=== PATIENT | female | born 1955 | race Caucasian/White ===

== ENCOUNTER → 2020-02-22 15:26 | Outpatient (CLI) | payer MEDICARE, OTHER, SELFPAY ==
--- NOTE | 2020-02-22 | DI.MRI.S_ITS ---
PROCEDURE: MR LUMBAR SPINE WO CON INDICATIONS: Radiculopathy, lumbar region TECHNIQUE: Noncontrast sagittal T1 spin echo and T2 fast echo, sagittal STIR, axial T1 and T2 fast spin echo through the lumbar spine. In cases with scoliosis, additional coronal T2 fast spin echo may be performed. COMPARISON: [facility], RG, XR L-SPINE 2-3V, 12/14/2002, 9:19. [facility], MR, L-SPINE WITHOUT CONTRAST, 08/06/2017, 14:43. FINDINGS: Image quality: Excellent. Alignment and Curvature: There is mild L4-L5 anterolisthesis. Bones: Postsurgical changes compatible with L5-S1 interbody fusion and L5 laminectomy stable compared to prior MRI. Reactive endplate changes noted adjacent to the L1-L2, L2-L3 and L3-L4 discs. No acute vertebral body compression fractures. Spinal Cord: Conus medullaris terminates at the L1-L2 disc level. Visualized cord demonstrates normal signal and size. Paraspinous Soft Tissues: No paravertebral masses. L1-L2: Loss of disc signal and height. Moderate, diffuse disc bulge. Mild bilateral facet hypertrophy. Mild narrowing of the central canal. Moderate right and mild left neural foraminal narrowing. No neural compression. L2-L3: Loss of disc signal and height. Moderate, diffuse disc bulge. Moderate bilateral facet hypertrophy. Moderate narrowing of the central canal. Moderate bilateral neural foraminal narrowing. No neural compression. L3-L4: Loss of disc signal and height. Moderate, diffuse disc bulge. Moderate facet and moderate ligamentum flavum hypertrophy. Severe narrowing of the central canal with mild compression of the nerve roots of the cauda equina. Moderate bilateral neural foraminal narrowing. L4-L5: Loss of disc signal and height. Moderate, diffuse disc bulge. Moderate facet and moderate ligamentum flavum hypertrophy. Severe narrowing of the central canal with compression of the nerve roots of the cauda equina. Mild right and moderate to severe left neural foraminal narrowing with slight compression of the exiting left L4 nerve root. L5-S1: Status post fusion. Moderate bilateral facet hypertrophy. No central stenosis. Mild bilateral neural foraminal narrowing.. No neural compression. IMPRESSION: 1. Stable postsurgical changes. 2. Grade 1 L4-L5 degenerative spondylolisthesis. 3. Multilevel degenerate disease. 4. Multilevel facet arthropathy. 5. Severe L3-L4 and L4-L5 central canal narrowing with mild compression of the nerve roots of the cauda equina. 6. Moderate to severe left L4-L5 neural foraminal narrowing with slight compression of the exiting left L4 nerve root. Dictated by: Mary Ann Duke MD, PhD on 02/22/2020 at 16:49 Approved by: Mary Ann Duke MD, PhD on 02/22/2020 at 16:56
== END ==
PROVIDERS: Family Provider Orthopaedic Surgery; PCP Family Medicine; Referring Provider Acupuncturist; Visit Provider Acupuncturist
DX: M51.16 Intervertebral disc disorders with radiculopathy, lumbar region (principal); M47.26 Other spondylosis with radiculopathy, lumbar region; M47.27 Other spondylosis with radiculopathy, lumbosacral region; M48.061 Spinal stenosis, lumbar region without neurogenic claudication; M43.16 Spondylolisthesis, lumbar region; Z98.1 Arthrodesis status
CPT/HCPCS: 72148

== ENCOUNTER 2021-05-25 15:42 | Emergency (ER) | payer MEDICARE, OTHER, SELFPAY ==
[2021-05-25 15:49] VITALS: BP 139/80; PULSE 78; RESP 18; TEMP 36.7; O2SAT 97; BMI 39.3
--- NOTE | 2021-05-25 15:49 | DI.RAD.S_ITS ---
PROCEDURE: XR SHOULDER LT MIN 2V INDICATIONS: left shoulder pain TECHNIQUE: 3 views of the shoulder were acquired. COMPARISON: [facility], CR, XR SHOULDER 2+ VIEWS LEFT, 05/23/2019, 14:51. [facility] [place], CR, XR SHOULDER MIN 2VW RT, 02/14/2016, 14:38. FINDINGS: Bones: Left shoulder hemiarthroplasty noted in place, unchanged the prior. No evidence of hardware failure or loosening. Normal bone mineralization. No subluxation. Left lung apex. Soft tissues: No suspicious soft tissue calcifications. IMPRESSION: Left shoulder hemiarthroplasty in place Approved by: Ruben Lei M.D. on 05/25/2021 at 16:00
--- NOTE | 2021-05-25 17:10 | ED.TRAUMA ---
HPI - Trauma General Chief Complaint: Extremity Injury, Upper Stated Complaint: LEFT SHOULDER PAIN Time Seen by Provider: 05/25/21 17:05 Source: patient Mode of arrival: Ambulatory Limitations: no limitations History of Present Illness HPI narrative: The patient complains of left anterior shoulder pain. She has undergone bilateral shoulder replacements. She has been having recurrent problems with the right shoulder. She has been caring around loads of laundry, lifting overhead. She developed left anterior shoulder pain yesterday. Pain is ongoing today. She has no neck pain or back pain. She has no erythema or swelling around the left shoulder. She has no numbness or weakness in the left arm. She is right-hand dominant. She denies recent illness. She has had no URI symptoms, headache or sore throat. She denies fever or chills. She has no cough or dyspnea. Related Data Previous Rx's Medication Instructions Recorded methocarbamol 750 mg tablet 750 mg PO Q6H PRN #40 tab 05/25/21 tramadol 50 mg tablet 50 mg PO Q6-8H PRN #14 tab 05/25/21 Allergies Allergy/AdvReac Type Severity Reaction Status Date / Time iodine [IODINE] Allergy Severe TONGUE Unverified 10/21/17 11:58 SWELLING, I GET VIOLENTLY ILL bee venom protein (honey bee) Allergy Verified 05/25/21 15:49 levofloxacin [LEVOFLOXACIN] AdvReac Severe VOMITING Unverified 10/21/17 11:58 Review of Systems Review of Systems ROS Unobtainable: All systems reviewed & are unremarkable except as noted in HPI and below Patient History Surgical History (Updated 05/25/21 @ 17:35 by Darvin Richmond MD) Status post total shoulder arthroplasty Social History Smoking Status: Never smoker Smoking Status: Never smoker Substance Use Type: does not use Exam Initial Vital Signs Initial Vital Signs: Vital Signs Temperature 98.1 F 05/25/21 15:49 Pulse Rate 78 05/25/21 15:49 Respiratory Rate 18 05/25/21 15:49 Blood Pressure 139/80 05/25/21 15:49 Pulse Oximetry 97 05/25/21 15:49 Const General: cooperative, comfortable, well developed and well groomed [facility] Head: normocephalic and atraumatic Neck Neck: normal visual inspection and No tender Back/Spine/Pelvis Back: normal to inspection and No back tenderness Skin General: no rashes or lesions noted Neuro General: patient alert, patient awake and patient oriented x3 Other: Motor and sensory exam of left arm is intact. Extrem Other: Tenderness in the left anterior shoulder. No edema, no erythema or warmth. Limited abduction and internal rotation due to pain. No laxity. Pain is focused in the anterior shoulder. No pain left biceps. Left arm is otherwise intact. 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 Left radial pulse is normal. Psych Mental Status: mental status grossly normal Course Course Course Narrative: She has undergone left shoulder replacement. The prosthesis intact. Left shoulder x-ray is otherwise benign. She is placed in a sling for comfort. I have given her Robaxin and tramadol for pain and muscle spasm relief. Orders Ordered: ED Orders 05/25/21 15:49 XR shoulder LT min 2V Stat Vital Signs Vital signs: Vital Signs - 8 hr 05/25/21 15:49 Temperature 98.1 F Pulse Rate 78 Respiratory Rate 18 Blood Pressure 139/80 Pulse Oximetry 97 MDM - Trauma Imaging Data Left shoulder x-ray: Radiologist's Impression: The prosthesis is intact. No acute findings. Discharge Plan Departure Patient Disposition: Home Clinical Impression: Left shoulder strain Qualifiers: Encounter type: initial encounter Qualified Code(s): S46.912A - Strain of unspecified muscle, fascia and tendon at shoulder and upper arm level, left arm, initial encounter Instructions: DI for Shoulder Dislocation, DI for Shoulder Sprain Activity Restrictions/Additional Instructions: Use the sling for comfort as needed. Wean from the sling as tolerated. Tylenol 2 tablets every 4 hours as needed for pain. Tramadol every 6 hours as needed for added pain control. Robaxin every 6 hours as needed for spasm. Contact her primary care provider, I would suggest physical therapy on her left shoulder. If not improving, contact your orthopedic surgeon. Prescriptions: New tramadol 50 mg tablet 50 mg PO Q6-8H PRN (Reason: pain) Qty: 14 RF: 0 methocarbamol 750 mg tablet 750 mg PO Q6H PRN (Reason: spasms) Qty: 40 RF: 0 Referrals: Yaneli Gutierrez MD [Primary Care Provider] -
[2021-05-25 17:46] VITALS: BP 130/82; PULSE 67; RESP 18; O2SAT 98
[2021-05-25] MEDS: TRAMADOL 50 MG TABLET PO (17:52)
[2021-05-25] MEDS: methocarbamoL 500 MG TABLET 750 MG PO (17:53)
== END 2021-05-25 17:57 | disposition home or self-care (01) ==
PROVIDERS: Emergency Provider Emergency Medicine; Family Provider Orthopaedic Surgery; PCP Family Medicine
DX: S46.912A Strain of unspecified muscle, fascia and tendon at shoulder and upper arm level, left arm, initial encounter (principal); X50.0XXA Overexertion from strenuous movement or load, initial encounter; Z96.612 Presence of left artificial shoulder joint
CPT/HCPCS: 73030; 99283; 99284

== ENCOUNTER 2021-06-30 15:55 | Emergency (ER) | payer MEDICARE, OTHER, SELFPAY ==
[2021-06-30 16:00] VITALS: BP 130/81; PULSE 71; RESP 18; TEMP 36.8; O2SAT 97
[2021-06-30 16:03] VITALS: PULSE 82; O2SAT 96
[2021-06-30 16:05] VITALS: BP 130/81; PULSE 72; RESP 28; O2SAT 97
--- NOTE | 2021-06-30 16:08 | DI.US.S_ITS ---
PROCEDURE: US PERIPH VENOUS LOW EXTREM LT INDICATIONS: LEFT THIGH TINGLING TECHNIQUE: Real-time imaging, as well as color and pulse Doppler interrogation, were performed of the lower extremity deep veins from the inguinal ligament to the popliteal fossa. COMPARISON: None. FINDINGS: The common femoral, femoral and popliteal veins are normally compressible, and free of intraluminal thrombus. Color and pulse Doppler demonstrate normal phasic intraluminal flow. There is normal augmentation response to distal compression maneuver. IMPRESSION: No DVT in the left lower extremity. Dictated by: Nguyễn Escamilla M.D. on 06/30/2021 at 16:03 Approved by: Nguyễn Escamilla M.D. on 06/30/2021 at 16:04
[2021-06-30 16:30] VITALS: BP 119/81; PULSE 68; RESP 19; O2SAT 95
--- NOTE | 2021-06-30 16:58 | PC.NURSE ---
patient was recently on a road trip for long periods of time, up to 4 hrs at a time. She has a history DVT
--- NOTE | 2021-06-30 17:26 | ED.LOWEXIN ---
HPI - Extremity Injury (Lower) General Chief Complaint: Extremity Injury, Lower Stated Complaint: LT LEG PAIN Time Seen by Provider: 06/30/21 16:07 Source: patient Mode of arrival: Ambulatory History of Present Illness HPI Narrative: Patient is a 66-year-old female. Several years ago she did have a right lower extremity DVT. She states that there was never a definitive diagnosis as to what caused the DVT. She was on anticoagulation for 3 months and then was stopped. She states that she did recently have a long car ride. She is having burning along the outside of her left leg can in her left calf. She was concerned again for DVT. No chest pain. No shortness of breath. Has not tried anything for the symptoms prior to arrival. Denies any lower back pain. Related Data Previous Rx's Medication Instructions Recorded methocarbamol 750 mg tablet 750 mg PO Q6H PRN #40 tab 05/25/21 tramadol 50 mg tablet 50 mg PO Q6-8H PRN #14 tab 05/25/21 Allergies Allergy/AdvReac Type Severity Reaction Status Date / Time iodine [IODINE] Allergy Severe TONGUE Unverified 10/21/17 11:58 SWELLING, I GET VIOLENTLY ILL bee venom protein (honey bee) Allergy Verified 05/25/21 15:49 levofloxacin [LEVOFLOXACIN] AdvReac Severe VOMITING Unverified 10/21/17 11:58 iv contrast dye Allergy Severe Swelling Uncoded 06/30/21 16:10 of Lip/Tongue/Throat Review of Systems Cardiovascular Cardiovascular: Denies chest pain and Denies dyspnea Respiratory Respiratory: Denies dyspnea Gastrointestinal Gastrointestinal: Reports system reviewed and no additional complaints, except as documented Musculoskeletal Musculoskeletal: Reports system reviewed and no additional complaints, except as documented, Reports as per HPI and Denies tingling Integumentary/Breasts Skin/Breast: Reports system reviewed and no additional complaints, except as documented Neurologic Neurologic: Denies tingling Comments: Burning left lower extremity Hematologic/Lymphatic On Anticoagulants: No Patient History Medical History DVT (deep venous thrombosis) Surgical History (Updated 05/25/21 @ 17:35 by Darvin Richmond MD) Status post total shoulder arthroplasty Social History Smoking Status: Never smoker Smoking Status: Never smoker Substance Use Type: does not use Exam Initial Vital Signs Initial Vital Signs: Vital Signs Temperature 98.2 F 06/30/21 16:00 Pulse Rate 71 06/30/21 16:00 Respiratory Rate 18 06/30/21 16:00 Blood Pressure 130/81 06/30/21 16:00 Pulse Oximetry 97 06/30/21 16:00 Const General: cooperative, healthy appearing, comfortable and well developed HENPA Head: normal to inspection Resp Effort & Inspection: normal respiratory effort Cardio Rate: regular rate Skin Other: Superficial bruising on the lateral aspect of the left leg otherwise no other skin changes. Neuro Gait: normal gait Sensory Exam: no sensory deficits noted Extrem Other: Patient does have tenderness to palpation along the lateral aspect of the left lower leg and also posterior to the left knee and lateral aspect of the left upper leg. Psych Appearance: grossly normal and well kempt Course Orders Ordered: ED Orders 06/30/21 16:08 US periph venous low extrem lt Stat Vital Signs Vital signs: Vital Signs - 8 hr 06/30/21 16:00 06/30/21 16:03 06/30/21 16:05 Temperature 98.2 F Pulse Rate 71 82 72 Respiratory Rate 18 28 H Blood Pressure 130/81 130/81 Pulse Oximetry 97 96 97 06/30/21 16:30 06/30/21 18:09 Temperature Pulse Rate 68 74 Respiratory Rate 19 18 Blood Pressure 119/81 142/88 H Pulse Oximetry 95 95 MDM - Extremity Injury (Lower) Imaging Data US - DVT: Radiologist's Impression: [address] [address] Ultrasound Report Signed Patient: Amelia Peraza MR#: [id number] : 1955 Acct:[id number] Age/Sex: 66 / F Date of Service: 06/30/21 Accession Number: [id number] ?? Procedure: US periph venous low extrem lt Ordering Provider: Anival Amaya D.O. PROCEDURE:? US PERIPH VENOUS LOW EXTREM LT ? INDICATIONS:? LEFT THIGH TINGLING ? TECHNIQUE:? Real-time imaging, as well as color and pulse Doppler interrogation, were performed of the lower extremity deep veins from the inguinal ligament to the popliteal fossa.? ? COMPARISON:? None. ? FINDINGS:? The common femoral, femoral and popliteal veins are normally compressible, and free of intraluminal thrombus.? Color and pulse Doppler demonstrate normal phasic intraluminal flow.? There is normal augmentation response to distal compression maneuver. ? ? IMPRESSION:? No DVT in the left lower extremity. ? ? Dictated by: Nguyễn Escamilla M.D. on 06/30/2021 at 16:03 ? ? Approved by: Nguyễn Escamilla M.D. on 06/30/2021 at 16:04? MDM Narrative Medical decision making narrative: Patient is neurovascularly intact. Ultrasound shows no evidence of DVT. Her is no signs of cellulitis. No swelling. Did consider other etiologies such as a bursitis and also other etiologies such as radiculopathy given the presentation of her symptoms. Afebrile. No further workup needed the emergency department. She was given return precautions and follow-up instructions. She expressed understanding and agreement. Discharge Plan Departure Patient Disposition: Home Clinical Impression: Left leg pain Instructions: DI for Leg Pain Activity Restrictions/Additional Instructions: The ultrasound today did not show any signs of a blood clot. I do have a high suspicion that your symptoms may be related to your lower back. I recommend you contact your primary doctor for a follow-up. Return to the emergency department for any new or worsening symptoms. Prescriptions: No Action tramadol 50 mg tablet 50 mg PO Q6-8H PRN (Reason: pain) Qty: 14 0RF methocarbamol 750 mg tablet 750 mg PO Q6H PRN (Reason: spasms) Qty: 40 0RF Referrals: Yaneli Gutierrez MD [Primary Care Provider] -
[2021-06-30 18:09] VITALS: BP 142/88; PULSE 74; RESP 18; O2SAT 95
== END 2021-06-30 18:13 | disposition home or self-care (01) ==
PROVIDERS: Emergency Provider Emergency Medicine; Family Provider Orthopaedic Surgery; PCP Family Medicine
DX: M79.605 Pain in left leg (principal); Z86.718 Personal history of other venous thrombosis and embolism
CPT/HCPCS: 93971; 99283

== ENCOUNTER → 2021-10-22 14:20 | Outpatient (CLI) | payer MEDICARE, OTHER, SELFPAY ==
--- NOTE | 2021-10-22 | DI.MRI.S_ITS ---
PROCEDURE: MR LUMBAR SPINE WO CON INDICATIONS: Radiculopathy, lumbar region TECHNIQUE: Noncontrast sagittal T1 spin echo and T2 fast echo, sagittal STIR, and T2 fast spin echo through the lumbar spine. In cases with scoliosis, additional coronal T2 fast spin echo may be performed. COMPARISON: [facility], , MR LUMBAR SPINE WO CON, 02/22/2020, 15:54. FINDINGS: Image quality: Excellent. Alignment and Curvature: Degenerative grade 1 L4-5 anterior spondylolisthesis. Bone Marrow: Chronic degenerative endplate changes noted throughout the exam Spinal Cord: Conus medullaris terminates at the L1 level. Visualized cord demonstrates normal signal and size. Paraspinous Soft Tissues: No paravertebral masses. T12-L1: Disc space narrowing and asymmetric left disc bulge present without central stenosis. Moderate bilateral foraminal stenosis. L1-L2: Disc space narrowing and circumferential disc bulge results in mild central stenosis. Hypertrophic facet joints associated with moderate right and mild left foraminal stenosis. L2-L3: Disc space narrowing and circumferential disc bulge combined with hypertrophic facet joints ligamentum flavum laxity to result in moderate central stenosis. Moderate bilateral foraminal stenosis. L3-L4: Disc space narrowing and circumferential disc bulge combines with hypertrophic facet joints and ligamentum flavum laxity to result in severe central stenosis. Moderate bilateral foraminal stenosis. L4-L5: Disc space narrowing with circumferential disc bulge and vacuum disc phenomena combined with hypertrophic facet joints and ligamentum flavum laxity to result in severe central stenosis. Severe left and mild right foraminal stenosis. L5-S1: Discectomy and fusion without posterior instrumentation. No central stenosis. Moderate bilateral foraminal stenosis. IMPRESSION: 1. Multilevel degenerative disc disease and arthropathy results in varying degrees of central and foraminal stenosis, including stable severe central stenosis at L3-4 and L4-5 2. L5-S1 interbody fusion without posterior instrumentation Approved by: Ruben Lei M.D. on 10/22/2021 at 16:09
== END ==
PROVIDERS: Family Provider Orthopaedic Surgery; PCP Family Medicine; Referring Provider Acupuncturist; Visit Provider Acupuncturist
DX: M51.16 Intervertebral disc disorders with radiculopathy, lumbar region (principal); Z98.1 Arthrodesis status
CPT/HCPCS: 72148